=== PATIENT | female | born 1975 | race Caucasian/White ===

== ENCOUNTER 2019-08-22 11:24 | Emergency (ER) | payer MEDICAID ==
[~2019-08-22] VITALS: Ht 175.3 cm; Wt 79.4 kg
--- NOTE | 2019-08-22 11:55 | NUR ---
Patient to ER bed 8 to gown for evaluation. Side rails up. Report given to Rafael WHITAKER.
--- NOTE | 2019-08-22 12:05 | NUR ---
ER at bedside examining patient.
--- NOTE | 2019-08-22 12:05 | NUR ---
Pt came to ER for abd pain and "feeling of vaginal prolapse" sharp pain 5/10. Resting in gurney VSS at this time.
--- NOTE | 2019-08-22 12:10 | NUR ---
Dr. Caballero doing a plevic exam at the bedside. Wet mount collected
[2019-08-22] MEDS ORDERED: KETOROLAC TROMETHAMINE 60 MG/2 ML VIAL IM ONE (13:30)
[2019-08-22 13:32] VITALS: BP_SYST 132
--- NOTE | 2019-08-22 13:33 | NUR ---
Patient given written and verbal discharge instructions and verbalizes understanding. ER MD discussed with patient the results and treatment provided. Patient in stable condition. ID arm band removed. IV catheter removed intact and dressing applied, no active bleeding. Rx of Doxycyline and Naproxen given. Patient educated on pain management and to follow up with PMD. Pain Scale 0/10. Opportunity for questions provided and answered. Medication side effect fact sheet provided.
[2019-08-24 02:14] LABS: CHLAMYDIA TRACHOMATIS NAA Negative (Negative); NEISSERIA GONORRHOEAE NAA Negative (Negative)
== END 2019-08-22 13:33 | disposition home or self-care (01) ==
LOC: SED 11:24
DX: N76.0 Acute vaginitis (principal); I10 Essential (primary) hypertension; F41.9 Anxiety disorder, unspecified
CPT/HCPCS: 87210; 87491; 87591; 96372; 99283; J1885

== ENCOUNTER 2022-10-15 11:31 | Emergency (ER) | payer MEDICAID ==
[~2022-10-15] VITALS: Ht 165.1 cm; Wt 108.9 kg
[2022-10-15 11:45] VITALS: BP_SYST 122; PULSE 88; RESP 20; TEMP 98.1; O2SAT 96
[2022-10-15 12:18] LABS: BASOPHILS # (AUTO) 0.1 K/uL (0.0-0.2); EOSINOPHILS # (AUTO) 0.3 K/uL (0.0-0.4); EOSINOPHILS % (AUTO) 3.6 % (0.0-4.0); HEMATOCRIT 36.5 % (36-48); HEMOGLOBIN 12.2 g/dL (12.0-16.0); LYMPHOCYTES # (AUTO) 2.2 K/uL (1.0-5.5); LYMPHOCYTES % (AUTO) 22.6 % (20.5-51.5); MEAN CORPUSCULAR HEMOGLOBIN 30 pg (27-31); MEAN CORPUSCULAR HGB CONC 33 % (32-36); MEAN CORPUSCULAR VOLUME 91 fL (79.0-98.0); MONOCYTES % (AUTO) 10.1 % (1.7-9.3); NEUTROPHILS % (AUTO) 62.7 % (40.0-70.0); PLATELET COUNT (AUTO) 257 K/uL (130-430); RED BLOOD CELL COUNT(AUTO) 4.03 MIL/uL (4.2-6.2); RED CELL DISTRIBUTION WIDTH 14.3 % (9.0-15.0); WHITE BLOOD COUNT (AUTO) 9.5 K/uL (4.8-10.8)
[2022-10-15 13:11] LABS: ANION GAP 8 (5-15); CALCIUM 8.6 mg/dL (8.4-11.0); CARBON DIOXIDE 26 mmol/L (23-29); CHLORIDE 104 mmol/L (98-107); CREATININE 0.66 mg/dL (0.55-1.30); GFR AFRICAN AMERICAN 122 mL/min (>90); GLUCOSE 106 mg/dL (74-106); POTASSIUM 4.2 mmol/L (3.5-5.1); SODIUM SERUM 138 mmol/L (136-145); UREA NITROGEN, BLOOD 13 mg/dL (8-21)
[2022-10-15 13:12] LABS: PROTHROMBIN TIME 9.9 SECS (9.5-12.5)
[2022-10-15 13:14] LABS: GFR NON AFRICAN-AMERICAN 101 mL/min (>90)
[2022-10-15 13:18] LABS: ALANINE AMINOTRANSFERASE 20 U/L (12-78); ALBUMIN 3.4 g/dL (3.4-4.8); ASPARTATE AMINOTRANSFERASE 21 U/L (10-37); CREATINE KINASE, TOTAL 187 U/L (26-192); TOTAL BILIRUBIN 0.4 mg/dL (0.0-1.0); TOTAL PROTEIN, SERUM 6.9 g/dL (6.4-8.3)
== END 2022-10-15 14:00 | disposition home or self-care (01) ==
LOC: SED 11:31
DX: R60.0 Localized edema (principal); I10 Essential (primary) hypertension; Z79.899 Other long term (current) drug therapy
CPT/HCPCS: 36415; 71045; 80053; 82550; 83880; 84484; 85025; 85610-TC; 85730-TC; 93005; 99285